=== PATIENT | female | born 1980 ===

== ENCOUNTER 2019-10-31 09:54 | Emergency (ER) | payer SELFPAY ==
[~2019-10-31] VITALS: Ht 167.6 cm; Wt 63.0 kg
[2019-10-31 10:14] VITALS: BP 132/84
--- NOTE | 2019-10-31 10:14 | NUR ---
ED Nurse Note: Pt ambulated into ED with family. Pt reports nausea and diarrhea with no vomiting. Pt denies abdominal pain. Pt reports diarrhea for last 5 days. Pt reports that this has happened twice over the last year. Pt vital signs stable, pt resting in bed.
[2019-10-31] MEDS ORDERED: Meclizine 25mg tab ORAL PRN (10:45)
--- NOTE | 2019-10-31 10:45 | Emergency Room Report ---
History of Present Illness General Chief Complaint: Dizziness Source: Patient Present Illness HPI Disclaimer: Please note that this report is being documented using DRAGON technology. This can lead to erroneous entry secondary to incorrect interpretation by the dictating instrument. HPI: 39-year-old German speaking female with history of endometriosis and migraine headaches presents for evaluation of lightheadedness and not feeling well. She is German speaking and history and physical exam were performed with the help of video legal service specialist services. The patient arrived from [facility] where she has been living for the past year. She is originally from [place] but has no recent travel within the past year. She reports diffuse myalgias, fatigue, lightheadedness, intermittent dizziness and a sensation of movement that comes in bursts. She has had vertigo in the past. Currently she denies any vertiginous symptoms. She feels weak and rundown. She had diarrhea and was vomiting earlier in the day. Denies fevers. She reported palpitations without chest pain. Intermittent cough. PMH: Endometriosis, migraine headaches, vertigo PSH: section Allergies: Unspecified antibiotic Social Hx: Denies alcohol or drug abuse Allergies: Coded Allergies: POTASSIUM (Verified Allergy, Unknown, 10/31/19) Patient History Last Menstrual Period: 2 YEARS AGO. Now: No Nursing Documentation-PMH Past Medical History: No History, Except For Review of Systems All Other Systems: negative except mentioned in HPI Physical Exam Vital Signs Date Time Temp Pulse Resp B/P (MAP) Pulse Ox O2 Delivery O2 Flow Rate FiO2 10/31/19 10:04 97.9 98 20 129/82 (98) 97 Room Air General: Awake and alert, no acute distress HEENT: NC/AT. EOMI. no nystagmus. Full visual de anda. Neck: Supple, trachea midline Chest Wall: No tenderness, no deformity Cardiovascular: RRR. S1 and S2 normal. No murmur appreciated Resp: Normal work of breathing. No cough, wheezing or crackles appreciated Abdomen: Abdomen is soft, nondistended. Nontender Skin: Intact. No abrasions, laceration or rash over the exposed skin MSK: Normal tone and bulk. Moving all extremities. No obvious deformity. Neuro: Awake and alert. Mentating appropriately. Moving all extremities. No ataxia. No nystagmus. Medical Decision Making Diagnostic Impression: Primary Impression: Anxiety Additional Impressions: Vertigo Viral illness Vomiting ER Course 39-year-old female presents for evaluation of fatigue, myalgias, palpitations, vomiting, diarrhea, lightheadedness/vertigo for the past 24 hours. Differential includes was not limited to viral syndrome, influenza, palpitations , ACS, gastroenteritis, gastritis, pancreatitis, vertigo, dehydration, electrolyte abnormality, urinary tract infection. We will start broad metabolic infectious work-up. Treat symptomatically with IV fluids, meclizine, Zofran. She arrives with stable vital signs and currently states she is feeling better just extremely fatigued. Physical exam is nonfocal and overall unremarkable Laboratory Tests Test 10/31/19 10:55 10/31/19 11:06 White Blood Count 9.5 K/UL (4.8-10.8) Red Blood Count 5.48 M/UL (4.20-5.40) H Hemoglobin 16.2 G/DL (12.0-16.0) H Hematocrit 48.0 % (37.0-47.0) H Mean Corpuscular Volume 88 FL (80-99) Mean Corpuscular Hemoglobin 29.5 PG (27.0-31.0) Mean Corpuscular Hemoglobin Concent 33.6 G/DL (32.0-36.0) Red Cell Distribution Width 11.3 % (11.6-14.8) L Platelet Count 228 K/UL (150-450) Mean Platelet Volume 7.2 FL (6.5-10.1) Neutrophils (%) (Auto) 78.2 % (45.0-75.0) H Lymphocytes (%) (Auto) 14.7 % (20.0-45.0) L Monocytes (%) (Auto) 6.0 % (1.0-10.0) Eosinophils (%) (Auto) 0.3 % (0.0-3.0) Basophils (%) (Auto) 0.8 % (0.0-2.0) Sodium Level 141 MMOL/L (136-145) Potassium Level 3.9 MMOL/L (3.5-5.1) Chloride Level 106 MMOL/L (98-107) Carbon Dioxide Level 26 MMOL/L (21-32) Anion Gap 9 mmol/L (5-15) Blood Urea Nitrogen 10 mg/dL (7-18) Creatinine 0.7 MG/DL (0.55-1.30) Estimate Glomerular Filtration Rate > 60 mL/min (>60) Glucose Level 95 MG/DL (74-106) Calcium Level 9.9 MG/DL (8.5-10.1) Phosphorus Level 3.1 MG/DL (2.5-4.9) Magnesium Level 2.4 MG/DL (1.8-2.4) Total Bilirubin 0.4 MG/DL (0.2-1.0) Aspartate Amino Transferase (AST) 24 U/L (15-37) Alanine Aminotransferase (ALT) 31 U/L (12-78) Alkaline Phosphatase 64 U/L (46-116) Troponin I 0.000 ng/mL (0.000-0.056) Total Protein 8.9 G/DL (6.4-8.2) H Albumin 4.8 G/DL (3.4-5.0) Globulin 4.1 g/dL Albumin/Globulin Ratio 1.2 (1.0-2.7) Urine Color Pale yellow Urine Appearance Cloudy Urine pH 7 (4.5-8.0) Urine Specific [place] 1.010 (1.005-1.035) Urine Protein Negative (NEGATIVE) Urine Glucose (UA) Negative (NEGATIVE) Urine Ketones Negative (NEGATIVE) Urine Blood Negative (NEGATIVE) Urine Nitrite Negative (NEGATIVE) Urine Bilirubin Negative (NEGATIVE) Urine Urobilinogen Normal MG/DL (0.0-1.0) Urine Leukocyte Esterase 1+ (NEGATIVE) H Urine RBC 0-2 /HPF (0 - 2) Urine WBC 2-4 /HPF (0 - 2) Urine Squamous Epithelial Cells Many /LPF (NONE/OCC) H Urine Bacteria Few /HPF (NONE) Microbiology Date/Time Source Procedure Growth Status 10/31/19 10:41 Nasal Nares - Final Complete 10/31/19 10:41 Nasal Nares - Final Complete EKG Diagnostic Results EKG Time: 10:50 Rate: normal Rhythm: NSR ST Segments: no acute changes Other Impression Sinus rhythm, normal axis, normal intervals, no ST segment changes Rhythm Strip Diag. Results Rhythm Strip Time: 10:50 EP Interpretation: yes Rate: 80s Rhythm: NSR, no PVC's, no ectopy Reevaluation Time: 14:11 Last Vital Signs Date Time Temp Pulse Resp B/P (MAP) Pulse Ox O2 Delivery O2 Flow Rate FiO2 10/31/19 10:04 97.9 98 20 129/82 (98) 97 Room Air Reevaluation Impression EKG and labs unremarkable. Patient reported feeling better after receiving Zofran and meclizine. She reports intermittent palpitations and feelings of extreme anxiety. She had been taking some anxiolytic medication in the past as needed but has not followed up with her PMD regarding these persistent symptoms. Likely, I believe this is a viral syndrome which triggered either a labyrinthitis or and anxiety episode. She is well-appearing now, calm with stable vital signs. Do not see acute indication for advanced imaging or hospital admission. She will be discharged with symptomatic medication including Zofran and meclizine. She can follow-up with her PMD and return with any new or worsening symptoms. Discussed reasons to return to the emergency department as well as all diagnostics results with patient and family by use of an legal service specialist video phone. They understand and agree with this treatment plan will be discharged home. Scripts Ondansetron Odt* (ZOFRAN ODT*) 4 Mg Tab.rapdis 4 MG BC EVERY 6 HOURS PRN for Nausea & Vomiting, #20 TAB 0 Refills Prov: Zhang Nazario MD 10/31/19 Meclizine Hcl* (MECLIZINE*) 25 Mg Tablet 25 MG ORAL THREE TIMES A DAY, #20 TAB Prov: Zhang Nazario MD 10/31/19 Zhang Nazario MD Oct 31, 2019 10:45
[2019-10-31 11:14] VITALS: BP 116/76
[2019-10-31 11:19] LABS: BASOPHILS % (AUTO) 0.8 % (0.0-2.0); EOSINOPHILS % (AUTO) 0.3 % (0.0-3.0); HEMOGLOBIN 16.2 G/DL (12.0-16.0); LYMPHOCYTES % (AUTO) 14.7 % (20.0-45.0); MEAN CORPUSCULAR VOLUME 88 FL (80-99); NEUTROPHILS % (AUTO) 78.2 % (45.0-75.0); PLATELET COUNT 228 K/UL (150-450); RED BLOOD COUNT 5.48 M/UL (4.20-5.40); RED CELL DISTRIBUTION WIDTH 11.3 % (11.6-14.8); WHITE BLOOD COUNT 9.5 K/UL (4.8-10.8)
[2019-10-31 11:20] LABS: APPEARANCE,URINE CLOUDY; BILIRUBIN, URINE NEGATIVE (NEGATIVE); COLOR,URINE PALE YELLOW; GLUCOSE, URINE (UA) NEGATIVE (NEGATIVE); KETONES,URINE NEGATIVE (NEGATIVE); LEUKOCYTE ESTERASE ,URINE 1+ (NEGATIVE); NITRITE,URINE NEGATIVE (NEGATIVE); PH,URINE 7 (4.5-8.0); PROTEIN,URINE NEGATIVE (NEGATIVE); UROBILINOGEN,URINE NORMAL MG/DL (0.0-1.0)
[2019-10-31 11:27] LABS: ANION GAP 9 mmol/L (5-15); BLOOD UREA NITROGEN 10 mg/dL (7-18); CALCIUM 9.9 MG/DL (8.5-10.1); CARBON DIOXIDE 26 MMOL/L (21-32); CHLORIDE 106 MMOL/L (98-107); CREATININE 0.7 MG/DL (0.55-1.30); POTASSIUM 3.9 MMOL/L (3.5-5.1); SODIUM 141 MMOL/L (136-145)
[2019-10-31 11:31] LABS: ALANINE AMINOTRANSFERASE 31 U/L (12-78); ALBUMIN 4.8 G/DL (3.4-5.0); ALBUMIN/GLOBULIN RATIO 1.2 (1.0-2.7); ALKALINE PHOSPHATASE 64 U/L (46-116); ASPARTATE AMINO TRANSFERASE 24 U/L (15-37); BILIRUBIN,TOTAL 0.4 MG/DL (0.2-1.0); PHOSPHORUS 3.1 MG/DL (2.5-4.9)
[2019-10-31] MEDS ORDERED: MECLIZINE HCL25 MG ORAL (14:04)
[2019-10-31] MEDS ORDERED: ONDANSETRON ODT4 MG BC (14:04)
[2019-10-31 14:26] VITALS: BP 120/68
--- NOTE | 2019-10-31 14:26 | NUR ---
ER DISCHARGE NOTE: Patient is cleared to be discharged per ERMD, pt is aox4, on room air, with stable vital signs. pt was given dc and prescription instructions, pt was able to verbalize understanding, pt id band and iv site removed without complications. pt is able to ambulate with steady gait. pt took all belongings.
== END 2019-10-31 14:26 | disposition home or self-care (01) ==
LOC: EMR 10:15
DX: F41.9 Anxiety disorder, unspecified (principal); R42 Dizziness and giddiness; B34.9 Viral infection, unspecified; R11.10 Vomiting, unspecified; G43.909 Migraine, unspecified, not intractable, without status migrainosus; Z88.8 Allergy status to other drugs, medicaments and biological substances
CPT/HCPCS: 36415; 80053; 81003; 83735; 84100; 84484; 85025; 86710; 93005; 96361; 96374; 96376; 99284; J2405; J7030